=== PATIENT | female | born 2000 | race Caucasian/White ===

== ENCOUNTER 2020-05-09 14:12 | Emergency (ER) | payer OTHER, SELFPAY ==
[2020-05-09 15:05] VITALS: BP 116/58; PULSE 97; RESP 19; TEMP 37.3; O2SAT 97; BMI 21.2
--- NOTE | 2020-05-09 15:33 | ED.EXTPRO ---
HPI - Extremity Problem General Chief complaint: Extremity Injury, Upper Stated complaint: finger injury Time Seen by Provider: 05/09/20 15:33 Source: patient Mode of arrival: ambulatory Limitations: no limitations History of Present Illness HPI Narrative: Otherwise healthy 20-year-old female presenting with complaint of right hand pain status post punching wall. States she points well on her frustration now having pain over the 4th and 5th metacarpal. This happened just prior to arrival at home. She is right-hand dominant. MD Complaint: extremity pain Location: right Radiation: none Relieving factors: cold therapy and immobilization Exacerbating factors: palpation Associated symptoms: denies other symptoms Related Data Previous Rx's Medication Instructions Recorded ibuprofen 800 mg PO Q8H PRN #30 tab 05/09/20 Allergies Allergy/AdvReac Type Severity Reaction Status Date / Time ibuprofen [From Advil] Allergy Facial Verified 05/09/20 15:08 Swelling Review of Systems Review of Systems: Constitutional: No Weight loss, No Fever, No Chills, No Night Sweats, No Fatigue, No Malaise ENT/Mouth: No Hearing loss, No Ear Pain, No Nasal Congestion, No Sinus Pain, No Hoarseness, No sore throat, No Rhinorrhea, No Swallowing Difficulty Eyes: No Eye Pain, No Swelling, No Redness, No Foreign Body, No Discharge, No Vision Changes Cardiovascular: No Chest Pain, Respiratory: No Cough, No Sputum, No Wheezing, No Smoke Exposure, No Dyspnea Gastrointestinal: No abdominal Pain Genitourinary: no irregular bleeding, left ventricle 1 week ago Musculoskeletal: No joint pain, As note din HPI Skin: No Skin Lesions, No rash Neuro: No Weakness, No Numbness, No Paresthesias, No Loss of Consciousness, No Dizziness, No Headache Psych: No Social Issues Heme/Lymph: No Bruising, No Bleeding,No Lymphadenopathy Endocrine: No Polyuria, No Polydipsia, No Temperature Intolerance Yes all other systems are reviewed and are negative [facility] Past Medical History Medical History (Updated 05/09/20 @ 16:38 by Renato Flannery NP) No known health problems Social History Social History Advance Directives: No Advance Directives Information Provided: No Physical Exam Vital Signs: Vital Signs: Last Vital Signs Temp 99.1 F 05/09/20 15:05 Pulse 97 05/09/20 15:05 Resp 19 01/04/21 15:05 BP 116/58 L 01/04/21 15:05 Pulse Ox 97 05/09/20 15:05 Body Mass Index 21.2 Reviewed Const: General: cooperative and healthy appearing; No acute distress or intoxicated appearing Nutritional Appearance: average body habitus Orientation/consciousness: patient oriented x3 Chest: Chest palpation & inspection: normal inspection of the chest Resp: Effort & Inspection: normal respiratory effort Auscultation: clear to auscultation bilaterally Cardio: Rhythm: regular rhythm Heart sounds: S1 normal heart sound present and S2 normal heart sound present : General: Yes no CVA tenderness Back/Spine/Pelvis: Back: no CVA tenderness Skin: General skin exam: no rashes or lesions noted Neuro: General: patient oriented x3 Extrem: General: Yes normal to inspection Elbow/forearm/wrist images: 1. Slight swelling with ecchymosis. Distally neurovascularly intact. Cap refill less than 2 seconds. Course Course Course Narrative: 1540 In review otherwise healthy 20-year-old female with right hand pain over the 4th 5th metacarpal status post punching well out of frustration no other complaints. No SI or HI. No open skin. Exam is consistent/concerning for boxer's fracture. Sent over for x-ray of the hand offers no other complaints at this time. Reevaluation(s) Reevaluation #1: Copies of the x-rays provided to the patient. Placed in a ulnar gutter splint. Skin intact. Neurovascularly intact. Ibuprofen for pain. Follow-up with Dr. Suárez. Consultations Consultation #1: Case discussed with Dr. Galarza orthopedic Recommendation for splint and follow-up with Dr. boyer later this week. Procedures Orthopedic Splinting/Casting Injury #1: Side: right Upper Extremity Injury Location: hand Upper Extremity Immobilizer: ulnar gutter Additional Comments: Neurovascular intact. MDM - Extremity (Nontraumatic) Imaging Data Right hand x-ray: Radiologist's impression: [address] [id number] XRay Report Signed Patient: Lisandra Alaniz#: [id number] : 2000Acct:[id number] Age/Sex: 20 / FADM Date: 05/09/20 Loc: HO.ED Attending Dr: Ordering Physician: Renato Flannery NP Date of Service: 05/09/20 Procedure(s): XR hand RT min 3V Accession Number(s): [id number] cc: Renato Flannery PLANT OPERATOR/SHIFT SUPERVISOR~ EXAMINATION: XR HAND, RIGHT CLINICAL INFORMATION: Pain status post punching wall. COMPARISON: None TECHNIQUE: PA, lateral, and oblique views of the right hand. FINDINGS: There is a boxer's fracture distal fifth metacarpal with volar angulation. No additional fracture, dislocation or subluxation seen. The soft tissues are mildly swollen dorsally along the fifth metacarpal. XR/XR hand RT min 3V IMPRESSION: Boxers fracture distal fifth metacarpal with volar angulation. Moderate dorsal soft tissue swelling. Dictated By:EMELIA SUAZO MD Signed By:<Electronically signed by EMELIA SUAZO MD in OV>05/09/20 1549 DD/ 1535 TD/TT: Customer Support Consultant: [facility] Discharge Clinical Impression: Closed boxer's fracture Qualifiers: Encounter type: initial encounter Qualified Code(s): S62.339A - Displaced fracture of neck of unspecified metacarpal bone, initial encounter for closed fracture Patient Disposition: Home, Self-Care Instructions: Hand Fracture (ED), Boxer Fracture (ED) Additional Instructions: Please leave your splint on until you follow-up with a hand surgeon Ice, elevate, compress Ibuprofen for pain as prescribed Return if any concerns or worsening symptoms Thank you Prescriptions: New ibuprofen 800 mg tablet 800 mg PO Q8H PRN (Reason: pain) Qty: 30 RF: 0
[2020-05-09] MEDS: Acetaminophen 325 MG TABLET 975 MG PO (16:30)
--- NOTE | 2020-05-09 17:37 | PC.NURSE ---
ULNAR GUTTER SPLINT ON, NEUROVASC INTACT. ICE AND ELEVATE. KEEP SPLINT ON. F/U ORTHO REVIEWED WITH PATIENT.
== END 2020-05-09 17:38 | disposition home or self-care (01) ==
PROVIDERS: Emergency Provider Emergency Medicine
DX: S62.336A Displaced fracture of neck of fifth metacarpal bone, right hand, initial encounter for closed fracture (principal); W22.09XA Striking against other stationary object, initial encounter; Y93.9 Activity, unspecified; Y92.019 Unspecified place in single-family (private) house as the place of occurrence of the external cause; Y99.9 Unspecified external cause status
CPT/HCPCS: 29125; 73130; 99283; 99284

== ENCOUNTER → 2020-05-11 13:24 | Outpatient (BNVA) | payer BC, SELFPAY | PROVIDERS: PCP Pediatrics; Visit Provider Orthopaedic Surgery | DX: Z76.89 Persons encountering health services in other specified circumstances (principal) ==

== ENCOUNTER 2020-05-12 13:04 | Day surgery (SDC) | payer OTHER, SELFPAY ==
[2020-05-12] VITALS (7 sets, daily range): BP systolic 125–134; BP diastolic 75–82; PULSE 79–92; RESP 14–17; TEMP 36.1–36.4; O2SAT 98–100; BMI 21.2
[2020-05-12 13:27] LABS: UPreg QC Valid YES; Urine Pregnancy NEGATIVE (NEGATIVE)
--- NOTE | 2020-05-12 13:54 | MHC.SHP ---
Pre-Procedural Eval Section B Chief Complaint: fifth metacarpal fx Allergies: Allergies Allergy/AdvReac Type Severity Reaction Status Date / Time ibuprofen [From Advil] Allergy Facial Verified 05/11/20 13:32 Swelling Plan I have reviewed the history and physical and performed a pertinent physical examination on my patient. No changes have occurred unless specified. rt 5th mc crpp vs orif
[2020-05-12] MEDS: ceFAZolin Sodium/Dextrose,Iso 2 GM/50 ML PIGGYBACK IV (14:02)
--- NOTE | 2020-05-12 15:57 | FL_ITS ---
EXAMINATION: XR FLUOROSCOPY WITH IMAGES CLINICAL INFORMATION: Fifth metacarpal fracture COMPARISON: Previous x-ray 05/09/2020 TECHNIQUE: Fluoroscopy performed by Dr. Suárez. Fluoroscopy time: 47 seconds Images: 4 FINDINGS: Images demonstrate 2 K wires transfixing the right fifth metacarpal fracture with improved alignment. FL/FL guidance in OR IMPRESSION: Fluoroscopic guidance for ORIF of right fifth metacarpal fracture.
--- NOTE | 2020-05-12 16:03 | P.CONAN_ITS ---
HPI - Anesthesia Eval Consult details Narrative: 20 F w/ KIMI/panic disorder p/f ORIF right 5th metacarpal PMFSH Past Medical History Medical History No known health problems Family History Family History Mother No problems noted. Father No problems noted. Surgical History Surgical History History of root canal procedure Social History Social History Are you a primary career services director to a significant other at home: No Do you presently have visiting nurse or other home services: No Alcohol intake: never Smoking Status: Never smoker Use of substances other than those prescribed or required for medical reasons: Yes Substance Use Type: Marijuana Substance Use Frequency: Occasionally Advance Directives: No Advance Directives Information Provided: Yes Advance Directives on File: No Current occupational status: employed Current occupation: [employer], right handed Meds Allergies Allergy/AdvReac Type Severity Reaction Status Date / Time ibuprofen [From Advil] Allergy Facial Verified 05/11/20 13:32 Swelling Exam Exam Date and Time: May 12, 2020 1603 Height,Weight and Vital Signs: Height 5 ft 3 in Weight 54.431 kg Pertinent Lab Results Pertinent Lab Results: Laboratory Tests 05/12/20 13:10 Urine Test NEGATIVE Airway Mallampati Class: I TM Dist: >3cm Neck ROM: Full Loose/Missing/Broken Teeth: No Heart: RRR Lungs: NL Other: Extreme anxiety Assessment and Plan Assessment Anesthesia Assessment: Anesthesia Plan Discussed and Chart Reviewed Final Anesthetic Review NPO: Yes ASA Class: I Final Preanesthetic Review: No Changes in Pt Med Stat, Meds/Allgs Chart Reviewed, Consent Obtained/Reviewed (Patient incapacitated by anxiety, consent signed by mother) and Anes Risks/Benef Reviewed Patient Risk: Low Procedure Risk: Low Anesthetic Plan Anesthetic Plan: GA Disposition: Standard PACU
[2020-05-12] MEDS: LORazepam 2 MG/ML VIAL 0.5 MG IVPUSH (16:25)
--- NOTE | 2020-05-12 17:22 | P.OP_ITS ---
Operative Note Operative Note Date of Service: 05/12/20 Narrative: Operative Note Narrative: Preop diagnosis: 1. Right 5th Metacarpal shaft fracture Postop diagnosis: Same Procedure: 1. Right 5th Metacarpal fracture closed reduction percutaneous pinning 2. Ulnar nerve block Surgeon: Lina Suárez MD Anesthesia: General Findings: Metacarpal fracture Implants: 0.062 K-wires times 2 Tourniquet time: None EBL: Minimal Specimen: None Drains: None Complications: None Disposition: Brought to the recovery room in stable condition Plan: Follow-up in 10-14 days for a wound check, postop radiographs and for placement in a short-arm finger spica cast Anticipate K-wire removal in 4 weeks based on interval bony healing Educate the patient that full fracture healing anticipated in approximately 8-12 weeks. Indications: The patient is 20 years old with a right 5th distal metacarpal shaft fracture . The risks and benefits of operative treatment, including but not limited to risk of damage to blood vessels, nerves, tendons, infection, recu rrence, delayed or nonunion of fracture, persistent pain or numbness, incomplete resolution of preoperative symptoms, or need for further surgery were discussed with the patient and they wished to proceed with surgery. Procedure: Once consent was obtained patient was brought back to the operating suite and placed in the operating table in a supine position. . Perioperative antibiotics and general anesthesia was administered by the anesthesia team. A tourniquet was applied to the proximal aspect of the right upper extremity and the limb was prepped and draped in a standard surgical fashion. Tourniquet was not inflated during the case. The FluoroScan was used during the case to assist with our fracture reduction and placement of all implants. An ulnar nerve block was 1st performed infiltrating about the ulnar nerve at the wrist with a combination of 1% lidocaine and 0.25% plain Marcaine. This was done for postop pain control. A closed reduction was performed on the patient's right 5th metacarpal shaft fracture. I placed a single 0.062 K-wire retrograde through the head of the right metacarpal extending proximally across the fracture site to the base of the metacarpal. A 2nd 0.062 K-wire was placed transversely through the neck of the 5th metacarpal extending into the head and neck of the 4th metacarpal. Fracture alignment was assessed for both angular and rotational malalignment. Once satisfied with our fracture reduction and implant placement, the K-wires were bent and cut short and pin caps applied. Final fluoroscopic images were then obtained. The wounds were copiously irrigated with normal saline. A Sterile dressing and short arm volar splint was applied. The patient appears to have tolerated the procedure well and with no complications. All digits were well vascularized at the conclusion of the case.
== END 2020-05-12 19:30 | disposition home or self-care (01) ==
PROVIDERS: Nurse Practitioner; Visit Provider Orthopaedic Surgery
PROC: (CPT 26608; principal; 2020-05-12 15:10)
DX: S62.326A Displaced fracture of shaft of fifth metacarpal bone, right hand, initial encounter for closed fracture (principal); W22.09XA Striking against other stationary object, initial encounter; Y93.89 Activity, other specified; Y92.9 Unspecified place or not applicable; Y99.8 Other external cause status
CPT/HCPCS: 26608; 81025; J0131; J0690; J1200; J2060; J2250; J2405; J3010

== ENCOUNTER 2020-05-24 09:30 | Outpatient (REF) | payer OTHER, SELFPAY ==
--- NOTE | 2020-05-24 09:42 | XR_ITS ---
EXAMINATION: XR HAND, RIGHT CLINICAL INFORMATION: Fracture COMPARISON: Previous exam most recent 05/12/2020 TECHNIQUE: PA, lateral, and oblique views of the right hand. FINDINGS: There are 2 K wires or pins transfixing the fracture of the distal shaft of the fifth metacarpal bone. Orthopedic hardware appears unchanged. Fracture line is still seen. Alignment is unchanged. There is no periosteal reaction. XR/XR hand RT min 3V IMPRESSION: ORIF of fracture of the fifth metacarpal shaft. Orthopedic hardware and fracture appear unchanged from previous exam.
== END 2020-05-24 09:31 | disposition home or self-care (01) ==
LOC: HO.HOSX 09:30
PROVIDERS: Visit Provider Orthopaedic Surgery
DX: S62.336D Displaced fracture of neck of fifth metacarpal bone, right hand, subsequent encounter for fracture with routine healing (principal)
CPT/HCPCS: 29075; 73130; 99212

== ENCOUNTER 2020-06-14 09:03 | Outpatient (REF) | payer OTHER, SELFPAY | END 2020-06-14 09:04 | disposition home or self-care (01) | LOC: HO.HOSX 09:03 | PROVIDERS: Visit Provider Orthopaedic Surgery | DX: S62.336A Displaced fracture of neck of fifth metacarpal bone, right hand, initial encounter for closed fracture (principal) | CPT/HCPCS: 99212 ==

== ENCOUNTER 2020-06-14 09:29 | Outpatient (REF) | payer OTHER, SELFPAY ==
--- NOTE | ~2020-06-14 | XR_ITS ---
EXAMINATION: XR HAND, RIGHT CLINICAL INFORMATION: Pain COMPARISON: 05/24/2020 TECHNIQUE: PA, lateral, and oblique views of the right hand. FINDINGS: Intramedullary david across fracture of the neck of the fifth metacarpal remain in place unchanged. Fiberglass cast obscuring fine bony detail. There is a step-off of the fracture site probably unchanged. No new fractures. XR/XR hand RT min 3V IMPRESSION: Stable fracture neck fifth metacarpal with residual step-off at the fracture site, intramedullary david remain in place.
== END 2020-06-14 09:30 | disposition home or self-care (01) ==
LOC: HO.XRAY 09:29
PROVIDERS: Visit Provider Orthopaedic Surgery
DX: M79.641 Pain in right hand (principal)
CPT/HCPCS: 73130

== ENCOUNTER 2020-07-19 09:46 | Outpatient (REF) | payer OTHER, SELFPAY ==
--- NOTE | ~2020-07-19 | XR_ITS ---
EXAMINATION: XR HAND, RIGHT CLINICAL INFORMATION: Fracture COMPARISON: Previous x-rays most recent June 2020 TECHNIQUE: PA, lateral, and oblique views of the right hand. FINDINGS: The orthopedic hardware in the fourth and fifth fingers have been removed. There is a displaced fracture of the distal shaft of the fifth metacarpal bone. There is volar displacement of the fifth metacarpal head and distal shaft with respect to the more proximal shaft. Fracture line is still seen. There is minimal surrounding bony callus formation. No other fracture is seen. There is severe osteopenia. Soft tissues are unremarkable. XR/XR hand RT min 3V IMPRESSION: Right fifth metacarpal shaft fracture. Severe osteopenia.
== END 2020-07-19 09:47 | disposition home or self-care (01) ==
LOC: HO.HOSX 09:46
PROVIDERS: Visit Provider Orthopaedic Surgery
DX: M25.641 Stiffness of right hand, not elsewhere classified (principal); S62.336D Displaced fracture of neck of fifth metacarpal bone, right hand, subsequent encounter for fracture with routine healing
CPT/HCPCS: 73130; 99212

== ENCOUNTER → 2020-08-02 13:16 | Outpatient (BNVA) | payer OTHER, SELFPAY | PROVIDERS: Visit Provider Orthopaedic Surgery | DX: M25.641 Stiffness of right hand, not elsewhere classified (principal); S62.336D Displaced fracture of neck of fifth metacarpal bone, right hand, subsequent encounter for fracture with routine healing | CPT/HCPCS: 99212 ==

== ENCOUNTER 2020-08-15 15:06 | Outpatient (REF) | payer OTHER, SELFPAY | END 2020-08-15 15:07 | disposition home or self-care (01) | LOC: HO.HOSX 15:06 | PROVIDERS: Visit Provider Orthopaedic Surgery | DX: Z13.89 Encounter for screening for other disorder (principal) ==

== ENCOUNTER → 2020-08-16 13:18 | Outpatient (BNVA) | payer OTHER, SELFPAY | PROVIDERS: Visit Provider Orthopaedic Surgery | DX: S62.336D Displaced fracture of neck of fifth metacarpal bone, right hand, subsequent encounter for fracture with routine healing (principal); M25.641 Stiffness of right hand, not elsewhere classified | CPT/HCPCS: 99212 ==

== ENCOUNTER → 2020-09-21 14:48 | Outpatient (BNVA) | payer OTHER, SELFPAY | PROVIDERS: Visit Provider Orthopaedic Surgery | DX: S62.336D Displaced fracture of neck of fifth metacarpal bone, right hand, subsequent encounter for fracture with routine healing (principal); M25.641 Stiffness of right hand, not elsewhere classified | CPT/HCPCS: 99212 ==

== ENCOUNTER 2020-10-10 14:00 | Outpatient (RCR) | payer OTHER, SELFPAY | END 2020-11-23 14:44 | disposition other institution (70) | LOC: HO.OT 14:00 | PROVIDERS: Visit Provider Orthopaedic Surgery | DX: S62.336D Displaced fracture of neck of fifth metacarpal bone, right hand, subsequent encounter for fracture with routine healing (principal) | CPT/HCPCS: 29125; 29130; 97035; 97110; 97140; 97165; 97530; 97760 ==